=== PATIENT | male | born 1980 | race Caucasian/White ===

== ENCOUNTER 2020-03-22 11:23 | Emergency (ER) | payer OTHER ==
[~2020-03-22] VITALS: Ht 175.3 cm; Wt 68.0 kg
[2020-03-22 11:25] VITALS: BP 151/99
--- NOTE | 2020-03-23 08:43 | EKG ---
[facility] [place] [address] ELECTROCARDIOGRAM REPORT Name: DOMINIK PARIS Room #: DEP 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
== END 2020-03-22 13:26 | disposition home or self-care (01) ==
LOC: ER 11:23
DX: F41.9 Anxiety disorder, unspecified (principal); T43.595A Adverse effect of other antipsychotics and neuroleptics, initial encounter; R07.89 Other chest pain; R25.2 Cramp and spasm; R06.02 Shortness of breath; F20.9 Schizophrenia, unspecified; F17.210 Nicotine dependence, cigarettes, uncomplicated; Z88.8 Allergy status to other drugs, medicaments and biological substances; Y92.89 Other specified places as the place of occurrence of the external cause